=== PATIENT | male | born 1985 | race African-American/Black ===

== ENCOUNTER 2022-06-26 10:14 | Emergency (ER) | payer SELFPAY ==
[~2022-06-26] VITALS: Ht 175.3 cm; Wt 82.5 kg
[2022-06-26] VITALS (7 sets, daily range): BP systolic 133–154; BP diastolic 93–101
[2022-06-26 10:40] LABS: BASO% 1.1 % (0-3); EOS% 1.1 % (0-8); HEMATOCRIT 44.6 % (39.0-50.0); HEMOGLOBIN 14.9 g/dl (14.0-18.0); LYMPH% 48.6 % (15-41); MEAN CELL VOLUME 88.3 fL CALC (80.0-100.0); MEAN CORPUSCULAR HGB 29.5 pG CALC (26.0-32.0); MEAN CORPUSCULAR HGB CONC 33.4 g/dL CAL (32.0-36.0); MONO% 9.7 % (2-13); NEUT# 1.39 thou/uL (1.82-7.42); NEUT% 39.5 % (42-76); RED BLOOD COUNT 5.05 mill/uL (4.70-6.10); RED CELL DISTRI WIDTH 12.3 % (11.5-15.5)
[2022-06-26] MEDS ORDERED: CAPTOPRIL25 MG PO (10:46)
[2022-06-26] MEDS ORDERED: OMEPRAZOLE20 MG PO ×2 (10:46→11:23)
[2022-06-26 11:08] LABS: ALBUMIN 4.5 g/dL (3.2-5.0); ALKALINE PHOSPHATASE 74 u/l (38-126); ANION GAP 8 (6-22 (CALC)); BILIRUBIN, TOTAL 0.5 mg/dL (0.0-1.4); BUN 8 mg/dL (9-20); BUN/CREATININE RATIO 8 (12-20 (CALC)); CARBON DIOXIDE 32 mmol/l (22-30); CHLORIDE 104 mmol/l (95-108); GFR FOR AFR.AMER. > 60 ML/MIN (>=60 (CALC)); GFR OTHER RACES > 60 ML/MIN (>=60 (CALC)); SGOT/AST 39 u/l (17-59); SODIUM 141 mmol/l (137-146); TOTAL PROTEIN 7.8 g/dL (6.3-8.2)
[2022-06-26] MEDS ORDERED: ZESTRIL5 M1 PO (11:23)
== END 2022-06-26 11:42 | disposition home or self-care (01) | DRG 313 ==
LOC: ED 10:14
PROVIDERS: Family Medicine
DX: R07.9 Chest pain, unspecified (principal); K29.70 Gastritis, unspecified, without bleeding

== ENCOUNTER 2022-07-18 14:15 | Emergency (ER) | payer SELFPAY ==
[2022-07-18] VITALS (7 sets, daily range): BP systolic 138–159; BP diastolic 91–113
[~2022-07-18] VITALS: Ht 175.3 cm; Wt 82.0 kg
[~2022-07-18 14:15] MED LIST: CAPTOPRIL25 MG PO; OMEPRAZOLE20 MG PO; ZESTRIL5 M1 PO
[2022-07-18] MEDS ORDERED: GENTAMICIN SULF5 ML OD (18:09)
== END 2022-07-18 18:41 | disposition home or self-care (01) | DRG 125 ==
LOC: ED 14:15
DX: S05.91XA Unspecified injury of right eye and orbit, initial encounter (principal); I10 Essential (primary) hypertension; X58.XXXA Exposure to other specified factors, initial encounter

== ENCOUNTER 2022-09-02 16:13 | Emergency (ER) | payer MEDICAID ==
[~2022-09-02] VITALS: Ht 175.3 cm; Wt 78.0 kg
[2022-09-02] VITALS (14 sets, daily range): BP systolic 127–155; BP diastolic 87–104
[~2022-09-02 16:13] MED LIST changes: +GENTAMICIN SULF5 ML OD
[2022-09-02 17:17] LABS: BASO% 0.9 % (0-3); EOS% 1.1 % (0-8); HEMATOCRIT 41.8 % (39.0-50.0); HEMOGLOBIN 13.8 g/dl (14.0-18.0); MEAN CELL VOLUME 89.3 fL CALC (80.0-100.0); MEAN CORPUSCULAR HGB 29.5 pG CALC (26.0-32.0); MONO% 11.2 % (2-13); NEUT# 2.13 thou/uL (1.82-7.42); NEUT% 47.8 % (42-76); RED BLOOD COUNT 4.68 mill/uL (4.70-6.10); RED CELL DISTRI WIDTH 12.5 % (11.5-15.5)
[2022-09-02 17:32] LABS: ALBUMIN 4.5 g/dL (3.2-5.0); ALKALINE PHOSPHATASE 67 u/l (38-126); ANION GAP 10 (6-22 (CALC)); BUN 13 mg/dL (9-20); BUN/CREATININE RATIO 14 (12-20 (CALC)); CARBON DIOXIDE 34 mmol/l (22-30); CHLORIDE 101 mmol/l (95-108); GFR FOR AFR.AMER. > 60 ML/MIN (>=60 (CALC)); GFR OTHER RACES > 60 ML/MIN (>=60 (CALC)); LIPASE 74 u/l (23-300); POTASSIUM 4.4 mmol/l (3.5-5.1); SGOT/AST 34 u/l (17-59); SODIUM 141 mmol/l (137-146); TOTAL PROTEIN 7.4 g/dL (6.3-8.2)
[2022-09-02 17:36] LABS: BILIRUBIN, TOTAL 0.2 mg/dL (0.2-1.3)
[2022-09-02] MEDS ORDERED: ZESTRIL5 M1 PO (18:35)
== END 2022-09-02 19:48 | disposition home or self-care (01) ==
LOC: ED 16:13
PROVIDERS: Nurse Practitioner
DX: R07.9 Chest pain, unspecified (principal); I10 Essential (primary) hypertension; T46.4X6A Underdosing of angiotensin-converting-enzyme inhibitors, initial encounter; Z91.128 Patient's intentional underdosing of medication regimen for other reason

== ENCOUNTER 2022-09-18 20:10 | Emergency (ER) | payer MEDICAID ==
[2022-09-18] VITALS (15 sets, daily range): BP systolic 145–167; BP diastolic 90–122
[~2022-09-18] VITALS: Ht 175.3 cm; Wt 77.2 kg
[2022-09-18 23:06] LABS: BASO% 0.7 % (0-3); EOS% 1.4 % (0-8); HEMATOCRIT 42.3 % (39.0-50.0); HEMOGLOBIN 13.9 g/dl (14.0-18.0); LYMPH% 39.3 % (15-41); MEAN CELL VOLUME 90.6 fL CALC (80.0-100.0); MEAN CORPUSCULAR HGB 29.8 pG CALC (26.0-32.0); MEAN CORPUSCULAR HGB CONC 32.9 g/dL CAL (32.0-36.0); MONO% 11.9 % (2-13); NEUT% 46.7 % (42-76); RED BLOOD COUNT 4.67 mill/uL (4.70-6.10); RED CELL DISTRI WIDTH 12.6 % (11.5-15.5)
[2022-09-18 23:11] LABS: ALBUMIN 4.5 g/dL (3.2-5.0); ALKALINE PHOSPHATASE 85 u/l (38-126); ANION GAP 12 (6-22 (CALC)); BILIRUBIN, TOTAL 0.2 mg/dL (0.2-1.3); BUN 17 mg/dL (9-20); BUN/CREATININE RATIO 17 (12-20 (CALC)); CARBON DIOXIDE 27 mmol/l (22-30); CHLORIDE 105 mmol/l (95-108); GFR FOR AFR.AMER. > 60 ML/MIN (>=60 (CALC)); GFR OTHER RACES > 60 ML/MIN (>=60 (CALC)); POTASSIUM 4.1 mmol/l (3.5-5.1); SGOT/AST 35 u/l (17-59); SODIUM 140 mmol/l (137-146); TOTAL PROTEIN 7.6 g/dL (6.3-8.2)
[2022-09-18 23:51] LABS: URINE BILIRUBIN - DIPSTICK NEGATIVE (NEGATIVE); URINE BLOOD DIPSTICK NEGATIVE (NEGATIVE); URINE COLOR YELLOW; URINE GLUCOSE - DIPSTICK NEGATIVE (NEGATIVE); URINE KETONE NEGATIVE (NEGATIVE); URINE LEUK ESTERASE NEGATIVE (NEGATIVE); URINE PROTEIN - DIPSTICK 30 mg/dL (NEG-TRACE); URINE SPECIFIC GRAVITY 1.025; URINE UROBILINOGEN - DIPSTICK 0.2 E.U./dL (0.2)
[2022-09-18 23:59] LABS: URINE NITRITE - DIPSTICK NEGATIVE (Negative)
[2022-09-19] VITALS (16 sets, daily range): BP systolic 142–159; BP diastolic 90–114
[2022-09-19 00:11] LABS: URINE RBC 0-2 RBC/hpf (0-5); URINE WBC 0-2 WBC/hpf (0-5)
[2022-09-19 00:12] LABS: URINE BACTERIA FEW hpf; URINE CALCIUM OXALATE CRYSTALS FEW lpf; URINE EPITHELIAL CELLS FEW EPI/hpf (0-FEW); URINE MUCUS FEW hpf (NONE-FEW); URINE YEAST RARE hpf
[2022-09-19] MEDS ORDERED: CYCLOBENZAPRINE1 POW PO (02:47)
[2022-09-19] MEDS ORDERED: MIRALAX17 GM PO (02:49)
[2022-09-19] MEDS ORDERED: NORVASC PO (02:49)
== END 2022-09-19 03:33 | disposition home or self-care (01) ==
LOC: ED 20:10
PROVIDERS: Emergency Medicine
DX: R07.9 Chest pain, unspecified (principal); I10 Essential (primary) hypertension
CPT/HCPCS: Q9967

== ENCOUNTER 2022-11-17 00:43 | Emergency (ER) | payer OTHER, MEDICAID ==
[~2022-11-17] VITALS: Ht 175.3 cm; Wt 77.0 kg
[~2022-11-17 00:43] MED LIST changes: +CYCLOBENZAPRINE1 POW PO; +MIRALAX17 GM PO; +NORVASC PO
[2022-11-17 02:25] LABS: BASO% 0.2 % (0-3); EOS% 1.1 % (0-8); HEMATOCRIT 42.9 % (39.0-50.0); HEMOGLOBIN 14.1 g/dl (14.0-18.0); IMMATURE GRANULOCYTES 0.2 % (0.0-5.0); LYMPH% 30.1 % (15-41); MEAN CELL VOLUME 90.3 fL CALC (80.0-100.0); MEAN CORPUSCULAR HGB 29.7 pG CALC (26.0-32.0); MEAN CORPUSCULAR HGB CONC 32.9 g/dL CAL (32.0-36.0); MONO% 11.3 % (2-13); NEUT# 2.52 thou/uL (1.82-7.42); NEUT% 57.1 % (42-76); RED BLOOD COUNT 4.75 mill/uL (4.70-6.10); RED CELL DISTRI WIDTH 12.7 % (11.5-15.5)
[2022-11-17 02:30] LABS: ALBUMIN 4.2 g/dL (3.2-5.0); ALKALINE PHOSPHATASE 68 u/l (38-126); ANION GAP 14 (6-22 (CALC)); BILIRUBIN, TOTAL 0.2 mg/dL (0.2-1.3); BUN 11 mg/dL (9-20); BUN/CREATININE RATIO 13 (12-20 (CALC)); CARBON DIOXIDE 28 mmol/l (22-30); CHLORIDE 102 mmol/l (95-108); CREATININE 0.9 mg/dL (0.7-1.3); GFR FOR AFR.AMER. > 60 ML/MIN (>=60 (CALC)); GFR OTHER RACES > 60 ML/MIN (>=60 (CALC)); POTASSIUM 3.8 mmol/l (3.5-5.1); SGOT/AST 31 u/l (17-59); SODIUM 140 mmol/l (137-146); TOTAL PROTEIN 6.8 g/dL (6.3-8.2)
[2022-11-17 03:36] LABS: URINE BILIRUBIN - DIPSTICK NEGATIVE (NEGATIVE); URINE BLOOD DIPSTICK NEGATIVE (NEGATIVE); URINE COLOR YELLOW; URINE GLUCOSE - DIPSTICK NEGATIVE (NEGATIVE); URINE KETONE NEGATIVE (NEGATIVE); URINE LEUK ESTERASE NEGATIVE (NEGATIVE); URINE PROTEIN - DIPSTICK NEGATIVE (NEG-TRACE); URINE UROBILINOGEN - DIPSTICK 0.2 E.U./dL (0.2)
[2022-11-17 03:37] LABS: URINE NITRITE - DIPSTICK NEGATIVE (Negative)
[2022-11-17] MEDS ORDERED: NAPROXEN500 MG PO (03:49)
[2022-11-17 04:16] VITALS: BP 126/78
== END 2022-11-17 04:16 | disposition home or self-care (01) | DRG 552 ==
LOC: ED 00:43
PROVIDERS: Emergency Medicine
DX: M54.50 Low back pain, unspecified (principal); I10 Essential (primary) hypertension

== ENCOUNTER 2022-12-12 16:21 | Emergency (ER) | payer MEDICAID ==
[~2022-12-12] VITALS: Ht 177.8 cm; Wt 77.1 kg
[~2022-12-12 16:21] MED LIST changes: +NAPROXEN500 MG PO
[2022-12-12] MEDS ORDERED: NAPROXEN500 MG PO (17:48)
[2022-12-12 17:53] VITALS: BP 137/91
== END 2022-12-12 17:59 | disposition home or self-care (01) ==
LOC: ED 16:21
DX: M25.512 Pain in left shoulder (principal); I10 Essential (primary) hypertension